=== PATIENT | female | born 1945 | race Caucasian/White ===

== ENCOUNTER → 2017-10-05 | Outpatient (CLI) | payer OTHER ==
[~2017-10-05] MED LIST: ALBU1AER9 INH; ASPEC81 PO; ATV5 PO; CALC-20 PO; FLUT0.0529 NAE; FSM70 PO; IPRASOL4 INH; MULT-190 PO; NCDT7 TD; NRV5 PO; NYSS5 PO; SNK PO; SYMIN INH; TIOTCAP INH
--- NOTE | 2017-10-06 05:59 | PAP/PSG TECHNICIAN REPORT ---
[facility] Fountain Waitress/Waiter Polysomnogram Report Study name: None Report date: 10/06/2017 Study date: 10/05/2017 Referring Physician: Dr. Lawson Name: GRETCHEN SHAIKH Interpreting Physician: Lang Olvera M.D. Date of : 1945 F[place] Waitress/Waiter: Ray Calderon RPSGT. Sex: Female Age: 71 StudyType: PSG Weight: 129 lbs 13.25 inches Height: 71 years, Height 5' 4" Neck Circum: BMI: 22.14 Medications: FLONASE 50 MCG/ACT, BONIVA 150 MG, CELEBREX 200 MG, ALBUTEROL, OXYGEN, ASPIRIN 81 MG Patient History PATIENT HAS HISTORY OF COPD, FATIGUE AND DAYTIME SLEEPINESS. SHE CURRENTLY WEARS 2L/MIN OF 02 .SHE IS HERE TODAY FOR AN EVALUATION OR AMY. ESS = 11 RM 2 Parameters Monitored NPSG: E1-M2, E2-M1, Fp1-M2, Fp2-M1, F3-M2, F4-M2, F4-M1, C3-M2, C4-M2, C4-M1, O1-M2, O2-M2, O2-M1, T3-M2, T4-M1, P3-M2, P4-M1, CHIN1, CHIN2, HR, EKG, Legs, PFLOW, SNOR, FLOW, CFLOW, Tidal Volume, THOR, ABDO, SpO2, PLTH, CPRESS, ETCO2 Wave, ETCO2, pH Sleep Architecture Sleep Stages Time at Lights Off 10:54:40 PM STAGES Time (min.) TST (%) Time at Lights On 5:33:40 AM Wake 70.5 -- Total Recording Time (TRT) 399.50 min. N1 56.5 17 Total Sleep Period (TSP) 396.5 min. N2 204.5 62 Total Sleep Time (TST) 328.5min. N3 8.5 3 Awake Time 71.0 min. REM 59.0 18 Wake after Sleep Onset 68.0 min. Sleep Efficiency (SE) 82 % Sleep Onset Latency (ROSANNA) 2.5 min. Number of Stage 1 Shifts None Awakenings 61 Stage Changes 209 Number of REM periods 6 REM 59.0 18 REM Latency 101.5 min. NREM 269.5 82 Body Position Analysis Supine Right Left Side Prone Vertical Total Sleep Time (min.) 346.2 0.0 49.7 49.66 0.0 0.0 Total Sleep Time (%) 85% 0% 15% 15 0% N/A% Total Sleep Time REM (min.) 28.5 0.0 30.5 None 0.0 0.0 Total Sleep Time NREM (min.) 250.3 0.0 19.2 None 0.0 0.0 Intermittent Wake (min.) 67.4 0.0 3.1 None 0.0 0.0 Total Sleep Period (%) 87% None None None None None Arousals Myoclonus (PLM) * Events Count Index Events Count Index Spontaneous 69 13 Events Awake (PLMW) 137 116.6 Respiratory 25 5.5 Events Asleep w/ Arousal (PLMA) 28 5.1 PLM 25 5 Events Asleep w/o Arousal (PLMS) 91 16.6 Snoring 6 1 Total Asleep 119 21.7 Total 123 22 Total 256 38 Respiratory Analysis * CA OA MA CH H RERA Total Count 0 5 0 0 50 15 55 Index 0.0 0.9 0.0 0 9.1 3 12.8 Mean Duration 0.0 29.1 0.0 0.00 21.9 16.5 21.3 Longest Duration 0.0 52.5 0.0 0.00 0.0 21.2 52.5 Respiratory Event Summary Total Supine ~Supine Right Left Prone REM NREM Apneas Count 5 5 0 N/A 0 N/A 5 0 Index 0.9 1 0 N/A 0.0 N/A 5 0 Hypopneas (4% Desat) Count 50 36 14 N/A 14 N/A 29 21 Index 9.1 7.7 17 N/A 16.9 N/A 29.5 4.7 Apneas & All Hypopneas Count 55 41 14 N/A 14 N/A 34 21 Index 10.0 9 17 N/A 17 N/A 34.6 4.7 Respiratory Events (Color Shop Helper+All Hyp+RERA) Count 55 54 16 N/A 16 N/A 34 21 Index 12.8 12 19 N/A 19.3 N/A 35.6 7.8 Respiratory Related Arousal Count 25 54 3 N/A 3 N/A 9 21 Index 5.5 6 4 N/A 4 N/A 9 5 Snoring Analysis Supine Right Left Prone REM NREM Total Snore duration 4.5 min Snores count 132 N/A 10 N/A 8 134 142 Snore mean duration 1.9 Sec Snores index 28 N/A 12 N/A 8.1 29.8 25.9 TST with snoring (%) 1.4% SpO2 Analysis Total REM NREM Awake <50% 0.0 min. 0.0 min. 0.0 min. 0.0 min. 51 - 60% 0.0 min. 0.0 min. 0.0 min. 0.0 min. 61 - 70% 0.4 min. 0.4 min. 0.0 min. 0.0 min. 71 - 80% 4.4 min. 4.3 min. 0.1 min. 0.1 min. 81 - 90% 375.5 min. 50.9 min. 261.0 min. 63.5 min. 91 - 100% 18.7 min. 3.5 min. 8.4 min. 6.9 min. Average 87 85 87 88 Minimum SpO2 66 66 80 80 Desaturation Event Index 8.6 31.5 4.7 5.1 # Desat. Events below 89% 56 31 19 6 Time(%) with Saturation below 89% 74.6 12.2 52.3 10.1 Time(min.) with Saturation below 89% 297.5 48.5 208.6 40.4 Heart Rate Analysis End Tidal CO2 Analysis Min (bpm) Max (bpm) Average (bpm) TSP (mins) % of TSP Awake 64 100 82 Above 55 mmHg 0.0 0.0 NREM 54 137 79 50-55 mmHg 0.0 0.0 REM 54 100 74 45-50 mmHg 0.0 0.0 Overall 54 137 78 40-45 mmHg 0.0 0.0 35-40 mmHg 2.6 0.8 30-35 mmHg 92.5 28.2 Average ETCO2 0.0 Supplemental O2 Values Minimum O2 level: None Value Start Time End Time Fountain Waitress/Waiter Comments Ms. Shaikh slept in the left and supine positions. PVC's noted. Leg movements noted. No bruxism noted. Snoring was noted and scored as a 2 on a scale of 1 through 5. (0=no snoring, 5=snoring loud enough to be heard through a closed door or down the angulo way) Ms. Shaikh awoke to use the restroom 0 times during the night. Mrs. Shaikh stated I did not sleep as well as I do when I am in my own bed. The final report will be interpreted and signed by a sleep physician. The completed physician report will then be placed in the patient medical record. Therapy (cm H2O) 0 TIB (min.) 399.0 TST (min.) 328.5 Sleep Onset (min.) 2.5 REM Onset From Sleep (min.) 101.5 Sleep Efficiency % 82 Wakefulness (%) 18 Wakefulness (min.) 71.0 NREM 1 (%) 17 NREM 1 (min.) 56.5 NREM 2 (%) 62 NREM 2 (min.) 204.5 NREM 3 (%) 3 NREM 3 (min.) 8.5 REM (%) 18 REM (min.) 59.0 # Arousals 123 Arousal Index 22 # Snore 142 Snore Index 25.9 AHI 10.0 AHI Supine 9 AHI Non-Supine 17 NREM AHI 4.7 REM AHI 34.6 RDI 12.8 # Obstructive Apnea 5 # Central Apnea 0 # Mixed Apnea 0 # Hypopneas 50 RERAs 15 Total Respiratory Events 72 Time Below SpO2 89% (min.) 257.1 Mean NREM SpO2 (%) 87 Mean REM SpO2 (%) 85 Mean Sleep SpO2 (%) 87 Min NREM SpO2 (%) 80 Min REM SpO2 (%) 66 Position Supine (min.) 346.2 Position Non-supine (min.) 49.7 LM Index Sleep 21.7 LM Index NREM 22.5 LM Index REM 18.3 Mean Heart Rate (bpm) 78 Min Heart Rate (bpm) 54
--- NOTE | 2017-10-06 15:33 | POLYSOMNOGRAPH REPORT ---
CLINICAL DATA: A 71-year-old female with BMI of 22.[address] Lawson with a history of COPD and possible sleep apnea. She uses oxygen 2 liters per minute. She does have fatigue and daytime sleepiness. Her [place] sleepiness score is 11/24. SLEEP ARCHITECTURE: Total sleep period was 396.5 minutes. Total sleep time was 328.5 minutes divided between 269.5 minutes of non-REM sleep and 59 minutes of REM sleep. Sleep onset latency was 2.5 minutes. REM latency was 101.5 minutes. Sleep efficiency was 82%. Wake after sleep onset was 68 minutes. Sleep consisted of stage N1 17%, stage N2 62%, stage N3 3%, and REM 18%. AROUSAL DATA: One hundred and twenty three arousals were recorded for an index of 22 per hour. Sixty nine were spontaneous. Twenty five were due to respiratory events. PLM DATA: 119 limb movements during sleep were noted for an index of 21.7 per hour with arousal index of 5.1 per hour. RESPIRATORY DATA: Mild sleep apnea was documented. The AHI was 10. There were 5 obstructive apneic episodes, the longest duration of which was 52.5 seconds. There were 50 hypopneic episodes with a mean duration of 22 seconds. OXIMETRY DATA: Nocturnal hypoxemia was seen. Oxygen maximino was 66% during REM. The mean saturation was 87%. ECHOCARDIOGRAM: Heart rates ranged from 54-137 beats per minute. PVCs were noted. HYDROELECTRIC PLANT OPERATOR'S COMMENTS: The patient slept in the left and supine positions. Snoring was mild, rated 2 on a scale of 1-5. The patient had frequent arousals and awakenings through the night. She did not reach an adequate AHI to justify a split night study early enough in the night. IMPRESSION: Mild sleep apnea/hypopnea with an apnea/hypopnea index of 10 with nocturnal hypoxemia. RECOMMENDATIONS: The patient could be considered for a repeat sleep study with CPAP and/or oxygen or continuation of her oxygen. Clinical correlation is needed. DARWIN
== END | disposition home or self-care (01) ==
LOC: C.NEUR 21:00
PROVIDERS: ATTEND Internal Medicine
DX: G47.33 Obstructive sleep apnea (adult) (pediatric) (principal)

== ENCOUNTER 2017-10-27 12:18 | Emergency (ER) | payer OTHER ==
[~2017-10-27] VITALS: Ht 160 cm; Wt 57.8 kg
[2017-10-27 12:21] VITALS: TEMP 36.5; Ht 160 cm; Wt 57.8 kg
[2017-10-27] MEDS ORDERED: ALBUT/IPRATROP 3MG/0.5MG NEB 3 ML VIAL INH STA (12:36)
[2017-10-27 12:52] LABS: BASO % 0.3 %; BASO ABS # 0.03 K/uL (0-0.2); EOS % 0.5 %; EOS ABS # 0.04 K/uL (0-0.5); HEMOGLOBIN 14.6 g/dL (12.0-16.0); IG# 0.03 K/uL (0.00-0.02); LYMPH % 10.3 %; LYMPH ABS # 0.89 K/uL (1.2-3.4); MEAN CELL VOLUME 88.5 fL (80-100); MEAN PLATELET VOLUME 9.9 fL (7.4-10.4); MONO % 4.4 %; MONO ABS # 0.38 K/uL (0.11-0.59); NEUT % 84.2 %; PLATELET COUNT 329 K/uL (130-400); RED CELL DISTRIBUTION WIDTH CV 14.3 % (11.5-14.5); RED CELL DISTRIBUTION WIDTH SD 46.2 fL (36.4-46.3); WHITE BLOOD COUNT 8.67 K/uL (4.8-10.8)
[2017-10-27 12:54] VITALS: O2SAT 96
--- NOTE | 2017-10-27 13:03 | DIAGNOSTIC IMAGING REPORT ---
SINGLE VIEW CHEST CLINICAL HISTORY: Dyspnea. FINDINGS: An AP, portable, upright chest radiograph is compared to study dated 01/13/2015 and correlated with chest CT dated 01/08/2015. The examination is degraded by portable technique and patient rotation. The cardiomediastinal silhouette is unremarkable. There is atherosclerotic calcification of the thoracic aorta. Enlargement of the central pulmonary arteries suggests pulmonary artery hypertension. Emphysema and chronic interstitial thickening are similar to previous. Biapical scarring is observed. No airspace consolidation or large pleural effusion is identified. Bibasilar atelectasis is noted. No pneumothorax is seen. The skeletal structures are osteopenic. The bony thorax is grossly intact. IMPRESSION: Advanced emphysema with no acute cardiopulmonary abnormality. Electronically signed by: Vincent Klein M.D. 10/27/2017 1:02 PM Dictated Date/Time: 10/27/2017 1:01 PM
[2017-10-27 13:04] LABS: PTT PATIENT 25.8 SECONDS (21.0-31.0)
[2017-10-27 13:15] LABS: ALBUMIN 4.1 gm/dl (3.4-5.0); CALCIUM 9.2 mg/dl (8.5-10.1); CREATININE 0.66 mg/dl (0.60-1.20); POTASSIUM 3.9 mmol/L (3.5-5.1)
[2017-10-27 13:18] LABS: TOTAL PROTEIN 7.2 gm/dl (6.4-8.2)
[2017-10-27 13:40] LABS: INFLUENZA B ANTIGEN Neg for Influ B (NEG)
[2017-10-27] MEDS ORDERED: ASPI-435 PO (13:54)
[2017-10-27] MEDS ORDERED: FLUT50SP45 NAE (13:56)
[2017-10-27] MEDS ORDERED: SPRIN/30 INH (13:56)
[2017-10-27] MEDS ORDERED: VNTHFA/IN INH (13:56)
[2017-10-27] MEDS ORDERED: MISCCAP80 PO (14:00)
[2017-10-27] MEDS ORDERED: PRED10TA PO (14:00)
[2017-10-27] MEDS ORDERED: IBAN150T7 PO (14:00)
[2017-10-27] MEDS ORDERED: DOXY100C2 PO (14:00)
[2017-10-27] MEDS ORDERED: UMEC1AER INH (14:00)
[2017-10-27] MEDS ORDERED: CELE1CAP30 PO (14:00)
[2017-10-27] MEDS ORDERED: VITACAP26 PO (14:01)
[2017-10-27 14:10] VITALS: O2SAT 96
--- NOTE | 2017-10-27 14:45 | EMERGENCY ROOM VISIT NOTE ---
History Report prepared by Manolo: Cayetano Hill Under the Supervision of: Dr. Salty Garcia D.O. First contact with patient: 13:05 Chief Complaint: SHORTNESS OF BREATH Stated Complaint: UNABLE TO BREATHE Nursing Triage Summary: feeling short of breath since monday. taking steroids and z pack without relief. History of Present Illness The patient is a 71 year old female who presents to the Emergency Room with complaints of worsening respiratory problems that began earlier this week. She has a past medical history of COPD and is on 2L of oxygen at night. Four days ago, the patient went to her PCP because she was experiencing a headache, sinus congestion, rhinorrhea, and a worsening cough. She was started on Azithromycin, Doxycycline, and Prednisone which she has been taking over this time. However, she had become short of breath which has worsened recently. She used a Nebulizer treatment this morning and had to use her Proventil inhaler yesterday which she has never had to do. She states her oxygen saturation decreased to 88 % last night. She notes that she had to use her oxygen during the day today secondary to her symptoms. She denies any fevers. Source of History: patient Onset: four days ago Position: other (Respiratory System) Symptom Intensity: moderate Quality: other (Shortness of breath) Timing: worsening Associated Symptoms: + headache, + cough, No fevers Note: She is experiencing sinus congestion and rhinorrhea. Review of Systems See HPI for pertinent positives & negatives. A total of 10 systems reviewed and were otherwise negative. Past Medical & Surgical Medical Problems: (1) COPD (chronic obstructive pulmonary disease) Family History Cancer Heart disease Hypertension Social History Smoking Status: Former Smoker Marital Status: single Housing Status: lives with family Occupation Status: retired Current/Historical Medications Scheduled Aspirin (Aspirin 81), 81 MG PO 2XWK Calcium Carbonate-Vitamin D (Calcium 600 + D), 1 TAB PO DAILY Doxycycline Hyclate (Vibramycin), 100 MG PO BID Fluticasone Propionate (Nasal) (Allergy Nasal [place] [address] Ho), 2 SPRAYS GIOVANNI DAILY Ibandronate Sodium (Ibandronate Sodium), 150 MG PO MONTHLY Ocuvite Preservision (Ocuvite Preservision), 1 TAB PO DAILY Prednisone (Prednisone), 1 DOSE PO UD Probiotic Product (Probiotic), 1 CAP PO DAILY Tiotropium [place] (Spiriva Handihaler), 1 CAP INH DAILY Umeclidinium-Vilanterol (Anoro Ellipta 62.5-25 Mcg/INH), 1 PUFF INH DAILY Vitamins C & E (Vitamin C), 1 CAP PO DAILY Scheduled PRN Albuterol Hfa (Ventolin Hfa), 2-4 PUFFS INH Q6H PRN for SOB/Wheezing Celecoxib (Celecoxib), 200 MG PO BID PRN for . Ipratropium-Albuterol (Duoneb), 1 TREATMENT INH Q4H PRN for Wheezing Lorazepam (Lorazepam), 0.5 MG PO TID PRN for Anxiety Allergies Coded Allergies: Naproxen (Verified Allergy, Intermediate, GENERALIZED RASH, 10/27/17) Physical Exam Vital Signs Date Time Temp Pulse Resp B/P (MAP) Pulse Ox O2 Delivery O2 Flow Rate FiO2 10/27/17 12:54 96 Room Air 10/27/17 12:53 96 Room Air 10/27/17 12:52 97 10/27/17 12:21 36.5 100 18 130/64 95 Room Air Physical Exam CONSTITUTIONAL/VITAL SIGNS: Reviewed / noted above. GENERAL: Non-toxic in appearance. INTEGUMENTARY: Warm, dry, and Peck. HEAD: Normocephalic. EYES: without scleral icterus or trauma. ENT/OROPHARYNX: clear and moist. LYMPHADENOPATHY/NECK: Is supple without lymphadenopathy or meningismus. RESPIRATORY: Scattered wheezing on the left . Mild increased work of breathing. CARDIOVASCULAR: Regular rate and rhythm. GI/ABDOMEN: Soft and nontender. No organomegaly or pulsatile mass. No rebound or guarding. Normal bowel sounds. EXTREMITIES: Warm and well perfused. BACK: No CVA tenderness. NEUROLOGICAL: Intact without focal deficits. PSYCHIATRIC: normal affect. MUSCULOSKELETAL: Normally developed with good muscle tone. Medical Decision & Procedures ER Provider Diagnostic Interpretation: Radiology results as stated below per my review and radiologist interpretation: SINGLE VIEW CHEST CLINICAL HISTORY: Dyspnea. FINDINGS: An AP, portable, upright chest radiograph is compared to study dated 01/13/2015 and correlated with chest CT dated 01/08/2015. The examination is degraded by portable technique and patient rotation. The cardiomediastinal silhouette is unremarkable. There is atherosclerotic calcification of the thoracic aorta. Enlargement of the central pulmonary arteries suggests pulmonary artery hypertension. Emphysema and chronic interstitial thickening are similar to previous. Biapical scarring is observed. No airspace consolidation or large pleural effusion is identified. Bibasilar atelectasis is noted. No pneumothorax is seen. The skeletal structures are osteopenic. The bony thorax is grossly intact. IMPRESSION: Advanced emphysema with no acute cardiopulmonary abnormality. Electronically signed by: Vincent Klein M.D. 10/27/2017 1:02 PM Dictated Date/Time: 10/27/2017 1:01 PM Laboratory Results 10/27/17 12:35 Red Blood Count 4.86, Mean Corpuscular Volume 88.5, Mean Corpuscular Hemoglobin 30.0, Mean Corpuscular Hemoglobin Concent 34.0, Mean Platelet Volume 9.9, Neutrophils (%) (Auto) 84.2, Lymphocytes (%) (Auto) 10.3, Monocytes (%) (Auto) 4.4, Eosinophils (%) (Auto) 0.5, Basophils (%) (Auto) 0.3, Neutrophils # (Auto) 7.30, Lymphocytes # (Auto) 0.89, Monocytes # (Auto) 0.38, Eosinophils # (Auto) 0.04, Basophils # (Auto) 0.03 10/27/17 12:35 Test 10/27/17 12:35 10/27/17 13:05 White Blood Count 8.67 K/uL (4.8-10.8) Red Blood Count 4.86 M/uL (4.2-5.4) Hemoglobin 14.6 g/dL (12.0-16.0) Hematocrit 43.0 % (37-47) Mean Corpuscular Volume 88.5 fL (80-100) Mean Corpuscular Hemoglobin 30.0 pg (25-34) Mean Corpuscular Hemoglobin Concent 34.0 g/dl (32-36) Platelet Count 329 K/uL (130-400) Mean Platelet Volume 9.9 fL (7.4-10.4) Neutrophils (%) (Auto) 84.2 % Lymphocytes (%) (Auto) 10.3 % Monocytes (%) (Auto) 4.4 % Eosinophils (%) (Auto) 0.5 % Basophils (%) (Auto) 0.3 % Neutrophils # (Auto) 7.30 K/uL (1.4-6.5) Lymphocytes # (Auto) 0.89 K/uL (1.2-3.4) Monocytes # (Auto) 0.38 K/uL (0.11-0.59) Eosinophils # (Auto) 0.04 K/uL (0-0.5) Basophils # (Auto) 0.03 K/uL (0-0.2) RDW Standard Deviation 46.2 fL (36.4-46.3) RDW Coefficient of Variation 14.3 % (11.5-14.5) Immature Granulocyte % (Auto) 0.3 % Immature Granulocyte # (Auto) 0.03 K/uL (0.00-0.02) Prothrombin Time 10.7 SECONDS (9.0-12.0) Prothromb Time International Ratio 1.0 (0.9-1.1) Activated Partial Thromboplast Time 25.8 SECONDS (21.0-31.0) Partial Thromboplastin Ratio 1.0 Anion Gap 10.0 mmol/L (3-11) Est Creatinine Clear Calc Drug Dose 62.8 ml/min Estimated GFR () 101.6 Estimated GFR (Non- 87.6 BUN/Creatinine Ratio 24.0 (10-20) Calcium Level 9.2 mg/dl (8.5-10.1) Total Bilirubin 0.8 mg/dl (0.2-1) Aspartate Amino Transf (AST/SGOT) 28 U/L (15-37) Alanine Aminotransferase (ALT/SGPT) 29 U/L (12-78) Alkaline Phosphatase 57 U/L (45-117) Total Protein 7.2 gm/dl (6.4-8.2) Albumin 4.1 gm/dl (3.4-5.0) Globulin 3.1 gm/dl (2.5-4.0) Albumin/Globulin Ratio 1.3 (0.9-2) Influenza Type A Antigen Neg for Influ A (NEG) Influenza Type B Antigen Neg for Influ B (NEG) Laboratory results as stated above per my review. Medications Administered Medications (Trade) Dose Ordered Sig/Meli Route Start Time Stop Time Status Last Admin Dose Admin Albuterol/ Ipratropium (Duoneb) 3 ml NOW STAT INH 10/27/17 12:36 10/27/17 12:41 DC 10/27/17 12:47 3 ML ECG Indication: SOB/dyspnea Rate (beats per minute): 95 Rhythm: normal sinus Findings: no acute ischemic change, no ectopy Change: ECG interpreted by me ED Course 1305: Previous medical records were reviewed. The patient was evaluated in room B6. A complete history and physical examination was performed. 1450: On reevaluation, the patient is resting. I discussed the results and findings with the patient. She verbalized agreement of the treatment plan. She was discharged home. Medical Decision Differentials considered include acute myocardial infarction, acute coronary syndrome, myocarditis, pericarditis, pericardial effusions /tamponade, esophageal perforation, pulmonary embolism, pneumonia, pneumothorax, cardiomyopathy, congestive heart, anemia, and COPD/asthma exacerbation. This is a 71-year-old female who presents to the ED with a chief complaint of shortness of breath. The patient saw her PCP on Monday and was started on a Z- Shaquille, doxycycline and prednisone. She has nebulizers at home. She states that she normally uses 2 L of oxygen at night. Her vital signs here are normal. She just finished a DuoNeb treatment. Her lungs are mostly clear with the exception of a scattered wheeze in the left. She has minimal increased work of breathing. She does have a chest x-ray that shows some chronic significant emphysema with otherwise no acute disease. CBC is normal, complete metabolic panel is normal and a glucose is 128. Flu swab was negative. The patient was told the results of the test. She is felt to be stable for discharge and outpatient follow-up. Medication Reconcilliation Current Medication List: was personally reviewed by me Blood Pressure Screening Patient's blood pressure: Normal blood pressure Blood pressure disposition: Did not require urgent referral Impression Primary Impression: COPD exacerbation Scribe Attestation The scribe's documentation has been prepared under my direction and personally reviewed by me in its entirety. I confirm that the note above accurately reflects all work, treatment, procedures, and medical decision making performed by me. Departure Information Dispostion Home / Self-Care Referrals Melody Johnson D.O. (PCP) Forms HOME CARE DOCUMENTATION FORM, IMPORTANT VISIT INFORMATION Patient Instructions My [facility] Additional Instructions Follow-up with your doctor for further care and evaluation in 1-2 days. Return to the emergency department for worsening or new symptoms or any concerns. You have been examined and treated today on an emergency basis only. This is not a substitute for, or an effort to provide, complete comprehensive medical care. It is impossible to recognize and treat all injuries or illnesses in a single emergency department visit. It is therefore important that you follow up closely with your doctor. Call as soon as possible for an appointment. Continue the current medications you have been prescribed by your doctor.
[2017-10-27 15:00] VITALS: BP 139/84; PULSE 112
== END 2017-10-27 15:05 | disposition home or self-care (01) ==
LOC: C.EDB 12:19
DX: J44.1 Chronic obstructive pulmonary disease with (acute) exacerbation (principal); Z99.81 Dependence on supplemental oxygen; Z87.891 Personal history of nicotine dependence; Z80.9 Family history of malignant neoplasm, unspecified; Z82.49 Family history of ischemic heart disease and other diseases of the circulatory system; Z79.82 Long term (current) use of aspirin; Z79.899 Other long term (current) drug therapy

== ENCOUNTER 2019-08-06 06:30 | Inpatient (IN) ==
--- NOTE | 2019-07-10 10:42 | PAT Medication Instructions ---
Medication Instructions Date of Service July 10, 2019 Home Medications albuterol sulfate 2 puff INHALATION QID PRN ascorbic acid (vitamin C) [Vitamin C] 250 mg PO QAM aspirin [Aspirin Low Dose] 81 mg PO 2XWK calcium carbonate-vitamin D3 [Calcium 600 + D(3)] 1 cap PO QAM celecoxib [Celebrex] 100 mg PO QAM cyanocobalamin (vitamin B-12) [Vitamin B-12] 100 mcg PO QAM doxycycline hyclate 100 mg PO BID PRN fluticasone propionate 2 spray INTRANASAL QAM ipratropium-albuterol 3 ml INHALATION QID montelukast 10 mg PO PM prednisone 10 mg PO DAILY PRN tiotropium bromide 1 cap INHALATION QAM vit A,C and K-[id number] [Ocuvite with Lutein] 1 tab PO QAM Continue as directed doxycycline hyclate 100 mg PO BID PRN (if needed) prednisone 10 mg PO DAILY PRN aspirin [Aspirin Low Dose] 81 mg PO 2XWK ASK your surgeon for instructions celecoxib [Celebrex] 100 mg PO QAM STOP taking 2 weeks before surgery (or as soon as possible if surgery is within 2 weeks) [Ocuvite with Lutein] 1 tab PO QAM DO NOT take the morning of surgery ascorbic acid (vitamin C) [Vitamin C] 250 mg PO [id number] calcium carbonate-vitamin D3 [Calcium 600 + D(3)] 1 cap PO QAM cyanocobalamin (vitamin B-12) [Vitamin B-12] 100 mcg PO QAM Take morning of surgery With a small sip of water, OTHERWISE NOTHING TO EAT OR DRINK AFTER MIDNIGHT: albuterol sulfate 2 puff INHALATION QID PRN (use if needed; please bring with you to hospital day of surgery if possible) fluticasone propionate 2 spray INTRANASAL QAM ipratropium-albuterol 3 ml INHALATION QID tiotropium bromide 1 cap INHALATION QAM Take evening before surgery albuterol sulfate 2 puff INHALATION QID PRN (if needed) ipratropium-albuterol 3 ml INHALATION QID montelukast 10 mg PO PM Other Notes If you have any questions please call us at [phone] or [phone] or [phone] or [phone]
--- NOTE | 2019-07-11 10:30 | Anesthesiology Consultation ---
Date of Service July 11, 2019 Assessment & Plan (1) Encounter for pre-operative examination: - Awaiting review preop labs. - Awaiting optimization/perioperative recommendations from pulmonary (Kajal Waters). - Cardiology: 07/08/19: recent stress test/echo reviewed. "She is considered moderate risk for perioperative cardiac complications given her history and comorbidities. Her underlying pulmonary disease makers her high risk for pulmonary complications. Would defer to pulmonary for recommendations. No further cardiac testing is warranted at this time." - Pulmonary: 06/26/19: Improved symptoms with addition of air purifier and montelukast. Aware of upcoming hip replacement. Chart Review Chart Review: Patient seen in Pre Admission Testing Teaching & Discussion Pre-Anesthesia Teaching/Discussion Notes: Instructed NPO after midnight before surgery,except medications with 15 cc of water. Medication instructions provided according to the PAT guidelines. History Surgery Operation Date: 08/06/19 12:30 Proposed Procedures p Right Total Hip Arthroplasty - Rigoberto Kan MD Height/Weight Height: 5 ft 3 in Weight: 60.2 kg Allergies Allergy/AdvReac Type Severity Reaction Status Date / Time naproxen Allergy Intermediate generalized Verified 07/11/19 09:12 rash NSAIDS (Non-Steroidal AdvReac Unknown unknown Verified 07/11/19 09:12 Anti-Inflamma reaction (? per MD order) Medications Home Medications Medication Instructions Recorded Confirmed Last Taken ascorbic acid (vitamin C) [Vitamin 250 mg PO QAM 07/04/19 07/04/19 Unknown C] aspirin [Aspirin Low Dose] 81 mg PO 2XWK 07/04/19 07/04/19 Unknown calcium carbonate-vitamin D3 1 cap PO QAM 07/04/19 07/04/19 Unknown [Calcium 600 + D(3)] celecoxib [Celebrex] 100 mg PO QAM 07/04/19 07/04/19 Unknown cyanocobalamin (vitamin B-12) 100 mcg PO QAM 07/04/19 07/04/19 Unknown [Vitamin B-12] doxycycline hyclate 100 mg PO BID PRN 07/04/19 07/04/19 Unknown fluticasone propionate 2 spray INTRANASAL QAM 07/04/19 07/04/19 Unknown ipratropium-albuterol 3 ml INHALATION QID 07/04/19 07/04/19 Unknown montelukast 10 mg PO PM 07/04/19 07/04/19 Unknown prednisone 10 mg PO DAILY PRN 07/04/19 07/04/19 Unknown tiotropium bromide 1 cap INHALATION QAM 07/04/19 07/04/19 Unknown vit A,C and K-woocgu-nzqovmuy 1 tab PO QAM 07/04/19 07/04/19 Unknown [Ocuvite with Lutein] Past Medical History Medical History Asthma Chronic obstructive pulmonary disease 2L HS/PRN daytime (daytime O2 rare/monthly) Osteoarthritis Sleep apnea "mild"- 2LHS Exercise / Class Metabolic Activity III < 4 Walking/Shop/Light housework Past Family History Family History Daughter Family hx of colon cancer Father FHx: lung cancer Sister HX: breast cancer Mother Family hx-leukemia Past Surgical History Surgical History History of tonsillectomy Hx of hernia repair inguinal Past Anesthesia History No Hx of Anesthesia Complications and No Family Hx of Anesthesia Complications History of PONV No Hx of PONV and No Hx of Motion Sickness Social History Smoking Status: Former smoker Do You Dip or Chew Tobacco: No Smoking End Date: Quit 11/2014; hx 1/2 ppd x 50 years Hx Alcohol Use: No Hx Substance Use: No Review of Systems Occasional wheezing. Rare coughing. Patient denies chest pain, shortness of breath, reflux, palpitations. Physical Exam Vital Signs VITALS BP 123/69 P 74 TEMP 98.5 SP02 93%RA RESP 16 PHYSICAL Full neck and c-spine range of motion. Full TMJ range of motion. TMD 3 finger breaths Mallampati Score 1 Dentition: full dentures upper/lower Lungs: clear throughout to auscultation Cardiac: regular rate and rhythm, no murmurs noted Spine: normal Carotid arteries: negative bruit Extremities: no edema Testing Electrocardiogram Date: 02/05/19 Findings: + NSR @ (83) Echocardiogram Date: 04/26/19 EF 60%. No RWMA. Grade I DD. Mild MR. Stress Test Date: 06/05/19 Type: DSE Pharmacologic stress ECHO negative for inducible ischemia. Mild equivocal EKG changes were observed without meeting criteria for definite ischemia. No angina. LVEF 55-59%. 122% MPHR. Other Testing Chest CT: 12/06/18: Significant interval resolution of LLL spiculated pleural/parenchymal nodular focus (likely infectious etiology). Two pulmonary nodules are present, measuring 3mm or less in size.
[2019-07-11 11:13] LABS: Basophils # (auto) 0.02 K/uL (0-0.2); Basophils % (auto) 0.2 %; Eosinophils % (auto) 2.4 %; Hematocrit (blood only) 41.1 % (37-47); Hemoglobin 13.4 g/dL (12.0-16.0); Immature Granulocytes # (auto) 0.04 K/uL (0.00-0.02); Immature Granulocytes % (auto) 0.5 %; Lymphocytes # (auto) 1.31 K/uL (1.2-3.4); Lymphocytes % (auto) 15.9 %; Mean Corpuscular Hemoglobin 29.3 pg (25-34); Mean Corpuscular Hgb Conc 32.6 g/dL (32-36); Mean Corpuscular Volume 89.9 fL (80-100); Monocytes # (auto) 0.82 K/uL (0.11-0.59); Neutrophils # (auto) 5.85 K/uL (1.4-6.5); Platelet Count 261 K/uL (130-400); RDW Coefficient of Variation 14.1 % (11.5-14.5); RDW Standard Deviation 46.1 fL (36.4-46.3); Red Blood Count 4.57 M/uL (4.2-5.4); White Blood Count 8.24 K/uL (4.8-10.8)
[2019-07-11 11:26] LABS: Partial Thromboplastin Time 25.9 Seconds (21.0-31.0); Prothrombin Time 10.2 Seconds (9.0-12.0)
[2019-07-11 12:49] LABS: BUN Creatinine Ratio 36.7 (10-20); Calcium 9.4 mg/dl (8.5-10.1); Creatinine Clr Calc Pharmacy 60.9 ml/min; Est GFR (African American) 100.2; Est GFR (Non-African American) 86.4
--- NOTE | 2019-08-02 18:06 | History and Physical Report ---
DATE OF ADMISSION: 08/06/2019 CHIEF COMPLAINT: Persistent right hip pain. HISTORY OF PRESENT ILLNESS: The patient is a 73-year-old female who presents for surgical treatment of her right hip. She has a several year history of increasing right hip pain and discomfort that is just becoming incapacitating with time. She initially saw Dr. Guaman and then was referred to us. She describes groin pain, thigh pain radiating down to her knee. It hurts her all the time. She has difficulty putting her shoes and socks on. The more she walks, the more it hurts. She limps from the beginning of the day to end of the day and it just gets worse as the day goes on. She has taken Celebrex which does not help at all. She now would like to have her hip replaced. PAST MEDICAL HISTORY: Significant for: 1. Oxygen dependent COPD, uses oxygen at nighttime. 2. Arthritis. PAST SURGICAL HISTORY: Include: 1. Herniorrhaphy. 2. T and A. ALLERGIES: ALEVE. CURRENT MEDICINES: Include: 1. Spiriva. 2. ProAir inhaler. 3. Celebrex. 4. Vitamin B12. 5. Vitamin C. 6. Calcium with vitamin D. 7. Ocuvite. 8. Montelukast. 9. O2 at nighttime. SOCIAL HISTORY: This is a 73-year-old female. Lives by herself. Rare alcohol intake. Three children. Quit smoking 4-5 years ago. FAMILY HISTORY: Significant for heart disease, diabetes, lung cancer. REVIEW OF SYSTEMS: Significant for oxygen dependent COPD. She does use oxygen at nighttime. Denies any current chest pain or shortness of breath. No history of DVT or PE. No known bleeding problems. PHYSICAL EXAMINATION: GENERAL: Shows a pleasant, healthy appearing elderly female. HEENT: Benign. NECK: Supple, no lymphadenopathy. LUNGS: Clear to auscultation. HEART: Regular rate and rhythm. ABDOMEN: Soft, nontender, nondistended. EXTREMITIES: Grossly neurovascularly intact except as follows: Examination of the right hip reveals the patient walks with an antalgic gait. Leg lengths clinically appear pretty equal. She has a very stiff hip with internal rotation to -10 degrees. She can externally rotate to 20. It is painful to move her hip. Negative straight leg raise. She is neurologically intact. X-RAYS: X-rays of the right hip were reviewed. Shows advanced right hip DJD. She has a complete loss of joint space. She has cystic changes of the femoral head and acetabulum. She has got collapse of the femoral head. She has less severe disease on the left side. ASSESSMENT: A 73-year-old female with advanced right hip degenerative joint disease. Her pain has become incapacitating. She would like to have her right hip fixed. PLAN: We discussed treatment options. We are going to take her to the operating room and do a right total hip replacement. The risks and benefits of this procedure were explained to the patient and include but not limited to DVT, PE, , infection, neurological injury, vascular injury, bleeding problem, pain, limited range of motion, stiffness, failure to relieve symptoms, incomplete relief of symptoms, need for further surgery in future, fracture, leg length inequality, nerve palsy, etc. The patient understands and desires to proceed. Informed consent was obtained. We will do all we can to maximize and stabilize her hip, so she does have any problems with instability. She apparently has been cleared by Cardiology as well as Pulmonology and her medical doctor, all [facility] physicians. We will likely have the [facility] hospitalist follow in the hospital.
[~2019-08-06 06:30] MED LIST changes: +ACETAMINOPHEN 500 MG TAB PO SCH; -ALBU1AER9 INH; -ASPEC81 PO; -ATV5 PO; +BUPIVACAINE 0.5 % 5 MG/1 ML PF 10ML VIAL ONE; -CALC-20 PO; +CEFAZOLIN 2000MG 2,000 MG/15 ML SYR IV SCH; +FAMOTIDINE 20 MG TAB PO SCH; -FLUT0.0529 NAE; -FSM70 PO; +GABAPENTIN 300 MG CAP PO SCH; -IPRASOL4 INH; +LR 500ML BOLUS IV SCH; +LR 60ML/HR IV SCH; +METOCLOPRAMIDE HCL 10 MG TABLET PO SCH; -MULT-190 PO; -NCDT7 TD; -NRV5 PO; -NYSS5 PO; -SNK PO; -SYMIN INH; -TIOTCAP INH; +TRANEXAMIC ACID 1,000 MG **IV Pre-op IV SCH
--- NOTE | 2019-08-06 06:55 | History & Physical Bridge Note ---
Date of Service August 06, 2019 History & Physical Bridge Note I have examined the patient, reviewed the History & Physical and in the interval since the performance of the History & Physical I have noted the following changes of clinical significance: no changes noted
[2019-08-06] MEDS ORDERED: MoRPHine SULFATE PF 1 MG/ML 10 ML AMP/VIAL ONE (07:47)
[2019-08-06] MEDS ORDERED: fentaNYL citrate 100 MCG/2 ML VIAL ONE (07:49)
[2019-08-06] MEDS ORDERED: MIDAZOLAM HCL 1 MG/ML 2ML VIAL ONE (07:50)
[2019-08-06] MEDS ORDERED: ONDANSETRON INJ 2 MG/ML 2 ML VIAL ONE (07:53)
[2019-08-06] MEDS ORDERED: LIDOCAINE HCL 2% 2 ML VIAL/AMP(20MG/ML) INFIL ONE (07:53)
[2019-08-06] MEDS ORDERED: PROPOFOL IV EMULSION 10 MG/ML 20 ML VIAL IV ONE (07:53)
[2019-08-06] MEDS ORDERED: EPINEPHrine INJ 1 MG/ML AMP ONE (08:38)
[2019-08-06] MEDS ORDERED: BUPIVACAINE 0.5 % 5 MG/1 ML MPF 30ML VIAL ONE (08:38)
[2019-08-06] MEDS ORDERED: BACITRACIN INJ 50,000 UNIT VIAL ONE (08:38)
[2019-08-06] MEDS ORDERED: LACTATED RINGER'S 500 ML IV PRN (08:49)
[2019-08-06] MEDS ORDERED: ONDANSETRON INJ 2 MG/ML 2 ML VIAL IV PRN ×2 (08:49→11:53)
[2019-08-06] MEDS ORDERED: MoRPHine SULFATE PF 1 MG/ML 10 ML AMP/VIAL INT SPINAL ONE (08:49)
[2019-08-06] MEDS ORDERED: DiphenhydrAMINE HCL 50 MG/ML VIAL IV PRN (08:49)
[2019-08-06] MEDS ORDERED: PROMETHAZINE HCL 6.25 MG in SODIUM CHLORIDE 0.9% 50 ML IV PRN (08:49)
[2019-08-06] MEDS ORDERED: NALOXONE HCL 0.08 MG in SYRINGE 1.8 ML IV PRN (08:49)
[2019-08-06] MEDS ORDERED: NALOXONE HCL 0.4 MG/1 ML VIAL/CARP IV PRN ×2 (08:49→11:53)
[2019-08-06] MEDS ORDERED: MEPERIDINE HCL 25 MG/ML CARP IV PRN (08:49)
[2019-08-06] MEDS ORDERED: NALOXONE HCL 1 MG in SODIUM CHLORIDE 0.9% 1000ML 1,000 ML IV PRN (08:49)
[2019-08-06] MEDS ORDERED: NALBUPHINE HCL INJ 10 MG/ML AMP IV PRN (08:49)
[2019-08-06] MEDS ORDERED: ePHEDrine sulfate 50 MG/ML AMP IV PRN (08:49)
[2019-08-06] MEDS ORDERED: NO NARCOTICS OR SEDATIVES SCH (09:00)
[2019-08-06] MEDS ORDERED: SODIUM CHLORIDE 0.9% 1000ML 1,000 ML IV SCH (09:00)
[2019-08-06] MEDS ORDERED: DC INTRASPINAL MORPHINE SCH (09:00)
[2019-08-06] MEDS ORDERED: ePHEDrine sulfate 50 MG/ML SYR ONE (09:31)
--- NOTE | 2019-08-06 10:32 | Post Operative Brief Note ---
PG Immediate Post Op with CF Date of Surgery August 06, 2019 Pre & Post Diagnosis Operation Date: 08/06/19 08:50 Pre-Op Diagnosis: RIGHT HIP DEGENERATIVE JOINT DISEASE Post-Op Diagnosis: RIGHT HIP DEGENERATIVE JOINT DISEASE I identified the patient and participated in the time-out.: Yes Procedure Operation Date: 08/06/19 08:50 Actual Procedures p Right Total Hip Arthroplasty, Uncemented(Right) - Rigoberto Kan MD Surgeon Rigoberto Kan MD Central Supply Technician Supervisor Priyanka, PAC Estimated Blood Loss 200 Findings Consistent with Post-Op Diagnosis Fluids 800 cc Specimens Specimen Description: Permanent Specimen: A: Right Femoral Head Drains Zambrano Catheter Anesthesia Type Spinal MAC Complications none Disposition Accompanied Patient To Recovery: Yes Disposition: Recovery Room
--- NOTE | 2019-08-06 10:56 | Anesthesiology Progress Note ---
Date of Service August 06, 2019 Anesthesia Post Procedure Vital Signs Vital Signs: Temp Pulse Pulse Resp BP BP Pulse Ox 08/06/19 10:50 68 16 121/50 L 99 08/06/19 10:40 70 12 123/50 L 99 08/06/19 10:33 36.2 C L 69 21 114/47 L 98 08/06/19 06:53 36.5 C 76 18 157/66 H 95 Transfer of Care Handoff Completed per policy Notes Mental Status: alert / awake / arousable Patient Amnestic to Procedure: Yes Nausea / Vomiting: adequately controlled Pain: adequately controlled Airway Patency, RR, SpO2: stable & adequate BP & HR: stable & adequate Hydration State: stable & adequate Neuraxial Anesthesia: was administered and sensory block is resolving Anesthetic Complications: no major complications apparent
--- NOTE | 2019-08-06 10:57 | XRay Report ---
XR hip 1V RT w pelvis CLINICAL HISTORY: 73 years-old Female presenting with IN PACU - A/P PELVIS and LATERAL HIP . TECHNIQUE: Single frontal view of the pelvis and cross-table lateral view of the right hip were obtai andrés. COMPARISON: 06/17/2019. FINDINGS: Post surgical changes of total right hip arthroplasty new from prior. Expected soft tissue emphysema and overlying skin balbir. No periprosthetic fracture. No malalignment. Lucency along the superior a cetabulum may relate to degenerative related cystic change/geode. The remainder of the bony pelvis is intact. Left hip joint intact and without significant degenerative change. IMPRESSION: Expected postsurgical appearance status post total right hip arthroplasty. Electronically signed by: Salinas Rodriguez M.D. 08/06/2019 10:56 AM
[2019-08-06] MEDS: SODIUM CHLORIDE 0.9% 1000ML 1,000 ML IV SCH ×2 (11:50→21:46)
[2019-08-06] MEDS ORDERED: bisacodyL 10 MG SUPP PR PRN (11:53)
[2019-08-06] MEDS ORDERED: ALUMINUM/MAGNESIUM SUSP 30 ML UDC PO PRN (11:53)
[2019-08-06] MEDS ORDERED: HYDROmorphone INJ 0.5 MG/0.5 ML SYR IV PRN (11:53)
[2019-08-06] MEDS ORDERED: predniSONE 10 MG TABLET PO PRN (11:53)
[2019-08-06] MEDS ORDERED: METOCLOPRAMIDE HCL INJ 5 MG/ML 2 ML VIAL IV PRN (11:53)
[2019-08-06] MEDS ORDERED: MAGNESIUM HYDROXIDE SUSP 30 ML UDC PO PRN (11:53)
[2019-08-06] MEDS ORDERED: TRAMADOL HCL 50 MG TABLET PO PRN (11:53)
[2019-08-06] MEDS ORDERED: DOXYCYCLINE HYCLATE 100 MG CAP PO PRN (11:53)
--- NOTE | 2019-08-06 12:01 | Operative Report ---
DATE OF OPERATION: 08/06/2019 SURGEON: Rigoberto Kan MD EMBLEM DRAWER IN: EMERSON Zamorano PREOPERATIVE DIAGNOSIS: Right hip degenerative joint disease. POSTOPERATIVE DIAGNOSIS: Right hip degenerative joint disease. PROCEDURE PERFORMED: Right uncemented ceramic on highly cross-linked polyethylene total hip arthroplasty. COMPLICATIONS: None. ESTIMATED BLOOD LOSS: 200 mL. FLUID REPLACEMENT: 800 mL crystalloid fluid replacement. ANESTHESIA: Spinal. DRAINS: None. SPECIMENS: Right femoral head sent for pathology. OPERATIVE INDICATIONS: The patient is a 73-year-old fairly healthy and independent elderly female who has had a several-year history of increasing right hip pain and discomfort that has gotten significantly worse over the past year. She has been through extensive conservative treatment which has failed. She is having difficulty living by herself anymore due to the hip pain and limitations. X-rays show advanced right hip DJD. She elected to proceed with surgical treatment. OPERATIVE FINDINGS: Operative findings revealed advanced right hip DJD. She had extensive grade 4 [id number]-krab disease of the femoral head and acetabulum with eburnation of the femoral head. OPERATIVE IMPLANTS: Operative implants consisted of: 1. A Biomet G7 size 48 mm acetabular shell. 2. A 6.5 cancellous acetabular screws, one at 35 mm length and one at 25 mm length. 3. An apex hole eliminator. 4. A highly cross-linked polyethylene liner with a 48 mm outer diameter and 32 mm inner diameter. 5. DePuy Corail size 9 KLA femoral stem with a short neck. 6. A +1/32 mm ceramic articular ball. OPERATIVE PROCEDURE: The patient was taken to the operating room, identified and placed on the operating table in supine position. All contact areas were appropriately padded. IV antibiotics were provided by anesthesia team. A spinal anesthetic had been implemented in the holding area. Zambrano catheter was placed in sterile fashion. The patient was then placed in the left lateral decubitus position. An axillary roll was placed. Stlberg hip positioner was used for positioning. Right hip and leg were then prepped and draped in usual sterile fashion. A posterolateral approach to the right hip was then performed through a curvilinear incision centered over the greater trochanter. Sharp dissection was carried through subcutaneous tissue down to the level of the IT band and gluteal fascia. The IT band and gluteal fascia was incised longitudinally in line with the skin incision. The underlying greater trochanteric bursa was excised. The piriformis and external rotators were tagged and taken off the posterior aspect of the hip joint capsule. Great care was taken throughout the procedure to protect the sciatic nerve at all times. Posterior capsulotomy was then performed leaving a large flap for later repair. Hip was internally rotated and dislocated. A femoral neck osteotomy cut was then made with the final cut about 5 mm above the lesser trochanter. I tried to cut this as low as possible and this is about as low as I could get without skiving the trochanter excessively. The femoral head was removed and sent for pathology. The femur was retracted anteriorly. Attention was then drawn to the acetabulum. The acetabulum labrum was excised. The pulvinar fat was excised. Sequential reaming of the acetabulum was then performed beginning with a size 43 and progressing up to 47. A 48 mm Biomet G7 acetabular shell was then placed in about 40 degrees of lateral opening and 20 degrees of anteversion. It was fixed with two 6.5 cancellous acetabular screws. A trial liner was placed. Some anterior and anterior inferior osteophytes were removed. Attention was then drawn toward the femur. The proximal femur was entered with a cookie cutter followed by canal finder. I broached beginning with size 8 and then progressing to a 9. I got pretty good fit with the 9 and there was not much cancellous bone left and I was afraid that any further broaching would risk fracture. We had good fit. The calcar reamer was used to smoothen off the calcar. I then trialed the hip. With the +1 articular ball and a standard KLA stem, the hip was stable, but just too tight in extension. Therefore, we used a short neck. This created more appropriate soft tissue tension. It was still a bit tight anteriorly. Leg lengths appeared equal. Hip was fully stable in full extension and external rotation and flexion to 90 degrees, internal rotation to over [address] I elected to place these implants. All trial implants were removed. An apex hole eliminator was placed. Highly cross-linked polyethylene liner was placed. A DePuy Corail size 9 KLA short neck femoral neck stem was then impacted in position. A +1/32 mm ceramic articular ball was placed. The hip was located and once again found to be stable. Attention was then drawn toward closing. The wound was irrigated with copious amounts of pulsatile lavage solution. I did inject locally with about 40 mL of 0.5% Marcaine with epinephrine. The posterior capsule and external rotators were then repaired through drill holes in the posterior trochanter with #2 Ti-Cron suture. The IT band and gluteal fascia were then closed with #1 PDS suture in running fashion. Subcutaneous tissues were then closed with 2 layers with the deep layer with #1 Vicryl suture and subcutaneous tissue with 2-0 Dexon suture in a buried interrupted fashion. Skin was closed with skin balbir. Leg was then cleaned, dried and a sterile dressing of Xeroform, 4 x 4, sterile ABD pad, and foam tape was applied. The patient was then transferred to the recovery room in stable condition. The patient tolerated the procedure well with no complications. All needle and sponge counts were correct at the end of the operation. I attest to the content of the Intraoperative Record and any orders documented therein. Any exception s are noted below.
--- NOTE | 2019-08-06 13:11 | Consultation ---
Date of Consultation August 06, 2019 Assessment & Plan (1) S/P total hip arthroplasty: Post op day# 0 S/P Right total hip arthroplasty by Dr Kan EBL#200ml -pain management per ortho -wound management per ortho -PT/OT as appropriate -DVT prophylaxis per ortho - SCDs -incentive spirometry -monitor H&H for acute blood loss anemia; pre-op Hgb: 13.4 (2) COPD (chronic obstructive pulmonary disease): (3) Asthma: Post op pt breathing at baseline. 98% on 2L via NC -Continue Breo, Spiriva, Singulair, Duoneb QID -Duoneb prn SOB/wheezing (4) Nocturnal hypoxemia: (5) Sleep apnea: On 2L NC HS -Continue oxygen HS and when sleeping DVT Prophylaxis -SCDs Disposition per primary service Follows with Dr Melody Johnson for routine care Pt was seen and care coordinated with Dr Luther. See addendum Pt will be followed by Dr Mitchell starting 08/07/19 Thank you for this consultation. We will follow the patient with you during their hospital stay. You can reach a member of the [facility] Hospitalist Team 24/04 via pager @ [phone]. Supervising Physician Co-Signing Physician Notes I, Dr. Jose Luis Luther, have seen and examined the patient with physician research lab assistant and agree with the assessment and plan in regards to recommendations to orthopedic service in this hospitalist medicine consult and would like to comment that This is a 73 year old female with Pre-Op Diagnosis of RIGHT HIP DEGENERATIVE JOINT DISEASE and is s/p Right Total Hip Arthroplasty by today on 08/06/19 Patient has history of Chronic obstructive pulmonary disease and uses 2 liters/minute for Nocturnal hypoxemia and Seep apnea On Physical exam General: no acute distress, patient was seen napping and on nasal cannula oxygen Lungs: clear to auscultation bilaterally Heart: regular rate Abdomen: soft, nontender, positive bowel sounds Extremities: right thigh with dressing, patient able to wiggle toes of bilateral lower extremities agree with continuing patient's monitoring inpatient, will expect patient to work with PT/OT by tomorrow, continue current pain management, continue current management of supplemental oxygen. patient does not has asthma exacerbation at this time, trend CBC after the surgery My colleague Dr. Mitchell will be following the patient starting on 08/07/19 as hospitalist medicine health and safety consultant History of Present Illness Reason for Consultation: Post op medical management Attending Physician: Rigoberto Kan MD History of Present Illness Pt is 73 y/o F with PMH COPD, asthma, nocturnal hypoxemia on 2L NC HS, AMY seen in consultation for post op medical management s/p R Total hip arthroplasty today by Dr Kan. Post op pt reports some nausea. Bilateral legs still with numbness. Denies any current pain. Feels breathing at baseline. Denies any SOB at rest. Denies CP. Had BM this morning prior to procedure. Denies fever/chills, diaphoresis, vomiting, diarrhea, BLACKMAN, dizziness, neck pain, palpitations, cough, sore throat, choking, abdominal pain, extremity edema, rashes, urinary symptoms. Had normal dobutamine stress test in 06/2019. Allergies Allergy/AdvReac Type Severity Reaction Status Date / Time naproxen Allergy Intermediate generalized Verified 08/06/19 06:48 rash NSAIDS (Non-Steroidal AdvReac Unknown unknown Verified 08/06/19 06:48 Anti-Inflamma reaction (? per MD order) Home Medications Home Medications Medication Instructions Recorded Confirmed Type ascorbic acid (vitamin C) [Vitamin 250 mg PO QAM 07/04/19 08/06/19 History C] aspirin [Aspirin Low Dose] 81 mg PO 2XWK 07/04/19 08/06/19 History calcium carbonate-vitamin D3 1 cap PO QAM 07/04/19 08/06/19 History [Calcium 600 + D(3)] celecoxib [Celebrex] 100 mg PO QAM 07/04/19 08/06/19 History cyanocobalamin (vitamin B-12) 100 mcg PO QAM 07/04/19 08/06/19 History [Vitamin B-12] doxycycline hyclate 100 mg PO BID PRN 07/04/19 08/06/19 History fluticasone propionate 2 spray INTRANASAL QAM 07/04/19 08/06/19 History ipratropium-albuterol 3 ml INHALATION QID 07/04/19 08/06/19 History montelukast 10 mg PO PM 07/04/19 08/06/19 History prednisone 10 mg PO DAILY PRN 07/04/19 08/06/19 History tiotropium bromide 1 cap INHALATION QAM 07/04/19 08/06/19 History vit A,C and K-urwngt-fbjnuijb 1 tab PO QAM 07/04/19 08/06/19 History [Ocuvite with Lutein] fluticasone furoate-vilanterol 1 inh INHALATION DAILY 08/06/19 08/06/19 History [Breo Ellipta] Patient History Medical History Nocturnal hypoxemia (Chronic) Chronic obstructive pulmonary disease (Chronic) 2L HS/PRN daytime (daytime O2 rare/monthly) Asthma (Chronic) Sleep apnea (Chronic) "mild"- 2LHS Osteoarthritis (Chronic) Surgical History History of tonsillectomy (Chronic) Hx of hernia repair (Chronic) inguinal Family History Daughter Family hx of colon cancer Father FHx: lung cancer Sister HX: breast cancer Mother Family hx-leukemia Social History Preferred Language: Polish Communication Ability: Effective Beliefs That Will Affect Care: None Current Living Situation: Alone Feels Safe at Home: Yes Safety Concerns: Feels Safe At This Time Smoking Status: Former smoker Do You Dip or Chew Tobacco: No ; Smoking End Date: Quit 11/2014; hx 1/2 ppd x 50 years ; Second Hand Exposure: No ; Hx Alcohol Use: No Hx Substance Use: No Review of Systems Review of Systems: All systems reviewed & are unremarkable except as noted in HPI & below Physical Exam Physical Exam: General: no acute distress, moderately developed moderately nourished, chronic ill appearing female Head: normocephalic, atraumatic Eyes: PERRL, EOM's intact, conjunctiva non-injected, anicteric ENT: normal inspection external ears, nose, mucous membranes moist Neck: supple, trachea midline Lungs: On 2L O2 via NC with pulse ox: 98%, diminished breath sounds throughout CV: RRR, no murmur, no pretibial edema Abd: normal BS, soft, non-tender Ext: no cyanosis, no calf tenderness; surgical dressing to right hip intact Neuro: A&O x 3, no focal deficits noted, normal affect Skin: warm, dry Results & Data Vital Signs (Past 12 Hours) Vital Signs Temp Pulse Pulse Pulse Resp BP BP 08/06/19 12:43 92 H 18 159/66 H 08/06/19 12:10 36.4 C L 74 15 123/64 08/06/19 11:50 36.4 C L 78 16 131/63 08/06/19 11:24 36.3 C L 08/06/19 11:15 73 14 144/52 H 08/06/19 11:00 36.4 C L 67 16 126/52 L 08/06/19 10:50 68 16 121/50 L 08/06/19 10:40 70 12 123/50 L 08/06/19 10:33 36.2 C L 69 21 114/47 L 08/06/19 06:53 36.5 C 76 18 157/66 H Pulse Ox 08/06/19 12:43 93 08/06/19 12:10 99 08/06/19 11:50 98 08/06/19 11:24 08/06/19 11:15 99 08/06/19 11:00 99 08/06/19 10:50 99 08/06/19 10:40 99 08/06/19 10:33 98 08/06/19 06:53 95
[2019-08-06] MEDS: ACETAMINOPHEN 500 MG TAB PO SCH ×2 (14:10→21:41)
[2019-08-06] MEDS: KETOROLAC TROMETHAMINE 15 MG/ML VIAL IV SCH ×2 (14:10→20:40)
[2019-08-06] MEDS: ALBUT/IPRATROP 3MG/0.5MG NEB 3 ML VIAL INH SCH ×2 (15:10→19:31)
--- NOTE | 2019-08-06 15:35 | Progress Note ---
DATE: 08/06/2019 SUBJECTIVE: A 73-year-old white female postop from a right hip replacement. She is doing well. Not having any pain yet. No chest pain or shortness of breath. Not feeling dizzy or lightheaded. OBJECTIVE: VITAL SIGNS: Temperature 36.4. Vital signs stable. O2 sats 97% on 2 liters. GENERAL: Shows a pleasant elderly female. She is sitting up in bed and talking to her collections attorney. She looks comfortable. She has got some nasal oxygen in place. LUNGS: Clear to auscultation. HEART: Has regular rate and rhythm. ABDOMEN: Soft, nontender, nondistended. EXTREMITIES: Grossly neurovascularly intact except as follows: Examination of the right leg reveals the leg to be well aligned. Leg lengths are equal. Hip is located. Dressing is clean, dry and intact. She can dorsiflex and plantarflex her foot appropriately. She is neurologically intact. X-RAYS: X-rays of the right hip from recovery room reviewed. It shows right uncemented total hip arthroplasty. Components looked to be in good position. No signs of problems. ASSESSMENT: A 73-year-old white female with some underlying oxygen dependent chronic obstructive pulmonary disease postop from right hip replacement, doing well. Pain is controlled. She is neurologically intact. Hip is located. PLAN: 1. DVT prophylaxis including thigh-high TEDs, SCDs, and aspirin twice a day. 2. PT/OT. Weight bear as tolerated. Right total hip protocol. 3. Pain control, doing well with current pain regimen. We are going to try and limit narcotics to avoid confusion issues. 4. IV antibiotics x24 hours. 5. Disposition: She is hoping to be discharged to home. We will see how she does in rehab. She apparently has a lot of family around to help. She will need some home health.
[2019-08-06] MEDS ORDERED: TRANEXAMIC ACID 1,000 MG in 0.9 % SODIUM CHLORIDE 100 ML IV SCH (16:30)
[2019-08-06] MEDS: CEFAZOLIN 1000MG 1,000 MG/7.5 ML SYR IV SCH (17:01)
[2019-08-06] MEDS: FERROUS GLUCONATE 324 MG TAB PO SCH (17:04)
[2019-08-06] MEDS: ASCORBIC ACID 500 MG TAB PO SCH (17:04)
[2019-08-06] MEDS: SENNA 8.6 MG TAB PO SCH (21:41)
[2019-08-06] MEDS: MONTELUKAST SODIUM 10 MG TABLET PO SCH (21:42)
[2019-08-06] MEDS: DOCUSATE SODIUM 100 MG CAP PO SCH (21:42)
[2019-08-06] MEDS: ASPIRIN 81 MG ECTAB PO SCH (21:43)
[2019-08-07] MEDS: CEFAZOLIN 1000MG 1,000 MG/7.5 ML SYR IV SCH (00:57)
[2019-08-07] MEDS: KETOROLAC TROMETHAMINE 15 MG/ML VIAL IV SCH ×4 (01:01→19:23)
[2019-08-07 05:27] LABS: Basophils # (auto) 0.01 K/uL (0-0.2); Basophils % (auto) 0.1 %; Eosinophils # (auto) 0.19 K/uL (0-0.5); Eosinophils % (auto) 2.3 %; Hematocrit (blood only) 35.2 % (37-47); Hemoglobin 11.6 g/dL (12.0-16.0); Immature Granulocytes # (auto) 0.02 K/uL (0.00-0.02); Immature Granulocytes % (auto) 0.2 %; Lymphocytes # (auto) 1.41 K/uL (1.2-3.4); Lymphocytes % (auto) 17.4 %; Mean Corpuscular Hemoglobin 29.6 pg (25-34); Mean Corpuscular Volume 89.8 fL (80-100); Mean Platelet Volume 10.2 fL (7.4-10.4); Monocytes # (auto) 0.97 K/uL (0.11-0.59); Monocytes % (auto) 11.9 %; Neutrophils # (auto) 5.52 K/uL (1.4-6.5); Neutrophils % (auto) 68.1 %; Platelet Count 220 K/uL (130-400); RDW Coefficient of Variation 14.1 % (11.5-14.5); RDW Standard Deviation 46.5 fL (36.4-46.3); Red Blood Count 3.92 M/uL (4.2-5.4); White Blood Count 8.12 K/uL (4.8-10.8)
[2019-08-07 05:57] LABS: BUN Creatinine Ratio 19.5 (10-20); Calcium 7.8 mg/dl (8.5-10.1); Creatinine Clr Calc Pharmacy 64.9 ml/min; Est GFR (African American) 102.2; Est GFR (Non-African American) 88.2; Potassium 3.5 mmol/L (3.5-5.1)
[2019-08-07] MEDS: ACETAMINOPHEN 500 MG TAB PO SCH ×3 (06:16→21:29)
[2019-08-07] MEDS: ALBUT/IPRATROP 3MG/0.5MG NEB 3 ML VIAL INH SCH ×4 (07:16→19:15)
[2019-08-07] MEDS: FLUTICASONE/VILANTEROL INHALER INH SCH (08:00)
[2019-08-07] MEDS: CYANOCOBALAMIN (VITAMIN B-12) 100 MCG TABLET PO SCH (08:00)
[2019-08-07] MEDS: TIOTROPIUM BROMIDE 5 PUFF/90 MCG INH INH SCH (08:00)
[2019-08-07] MEDS: CALCIUM 600MG + VIT D 400 IU TAB PO SCH (08:00)
[2019-08-07] MEDS: ASCORBIC ACID 500 MG TAB PO SCH ×2 (08:01→17:57)
[2019-08-07] MEDS: DOCUSATE SODIUM 100 MG CAP PO SCH ×2 (08:01→19:28)
[2019-08-07] MEDS: FERROUS GLUCONATE 324 MG TAB PO SCH ×2 (08:01→17:57)
[2019-08-07] MEDS: FLUTICASONE PROPIONATE NA SPR 16 GM BTL NAE SCH (08:01)
[2019-08-07] MEDS: CEROVITE ADV FORMULA TAB PO SCH (08:01)
[2019-08-07] MEDS: ASPIRIN 81 MG ECTAB PO SCH ×2 (08:01→21:29)
[2019-08-07] MEDS ORDERED: MULTIVITAMIN TAB PO SCH (09:00)
[2019-08-07] MEDS ORDERED: ASCORBIC ACID 250 MG PO SCH (09:00)
--- NOTE | 2019-08-07 12:39 | Progress Note ---
DATE: 08/07/2019 SUBJECTIVE: A 73-year-old white female postop day #1 from right hip replacement. She is doing quite well. Pain is controlled. She rates her pain at about 2/10. No chest pain or shortness of breath. Not feeling dizzy or lightheaded. OBJECTIVE: VITAL SIGNS: Temperature 36.6. Vital signs stable. GENERAL: Shows a pleasant elderly female. Sitting up in her bedside chair and looks quite comfortable. EXTREMITIES: Examination of the right hip reveals leg lengths to be equal. Dressing is clean, dry and intact. She can dorsiflex and plantarflex her foot appropriately. She is neurologically intact. LABORATORY DATA: Hemoglobin is 11.6. Hematocrit 35.2. Electrolytes are stable. ASSESSMENT: A 73-year-old white female postop day #1 from right hip replacement, doing quite well. Pain is controlled. Hip is located. She is neurologically intact. Pulmonary situation seems to be under control. PLAN: 1. DVT prophylaxis including thigh-high TEDs, SCDs, and aspirin twice a day. 2. PT/OT. Weight bear as tolerated. Right total hip protocol. 3. Pain control, doing well with current pain regimen. We are going to try and limit narcotics to avoid confusion. 4. Disposition: Plan to discharge to home with some home health.
--- NOTE | 2019-08-07 19:20 | Hospitalist Progress Note ---
Date of Service August 07, 2019 Assessment & Plan (1) S/P total hip arthroplasty: Post op day# 1 S/P Right total hip arthroplasty by Dr Kan Continue pain management per ortho Continue PT/OT evaL Incentive spirometry Monitor H/H Fall precaution (2) COPD (chronic obstructive pulmonary disease): (3) Asthma: Continue Breo, Spiriva, Singulair, Duoneb QID Stable (4) Nocturnal hypoxemia: (5) Sleep apnea: Continue oxygen HS and when sleeping DVT Prophylaxis as per ortho Disposition As per Ortho Thank you for this consultation. We will follow the patient with you during their hospital stay. You can reach a member of the [facility] Hospitalist Team 24/04 via pager @ [phone]. Subjective Pt was seen and examined Sitting in chair with no distress Pt said that she feels much better She said that her pain is controlled She said that she has been walking in the hallway Denies any chest pain, palpitation and SOB Physical Exam Physical Exam: General- No acute distress Head- atraumatic Eyes- PERRL, EOMI, ENT- oropharynx clear Neck- supple, no JVD Lungs- clear to auscultation Heart- regular rhythm; no murmur Abdomen- normal bowel sounds, soft, nontender Extremities- no calf tenderness Neuro- alert, oriented x 3; PERRL, EOMI; no facial palsy; no dysarthria Skin- warm & dry Results & Data Vital Signs (Past 12 Hours) Vital Signs Temp Pulse Pulse Resp BP Pulse Ox 08/07/19 16:21 101 H 08/07/19 15:23 36.7 C 136 H 18 146/69 H 92 08/07/19 14:52 103 H 16 93 08/07/19 11:55 36.6 C 88 18 120/62 94 08/07/19 11:10 90 16 94 08/07/19 07:55 36.5 C 84 18 124/58 L 96 08/07/19 07:16 77 16 91
[2019-08-07] MEDS: SENNA 8.6 MG TAB PO SCH (19:28)
[2019-08-07] MEDS: MONTELUKAST SODIUM 10 MG TABLET PO SCH (21:29)
[2019-08-08] MEDS: KETOROLAC TROMETHAMINE 15 MG/ML VIAL IV SCH ×2 (02:47→08:33)
[2019-08-08] MEDS: ACETAMINOPHEN 500 MG TAB PO SCH (06:20)
[2019-08-08] MEDS: ALBUT/IPRATROP 3MG/0.5MG NEB 3 ML VIAL INH SCH ×2 (06:49→11:19)
--- NOTE | 2019-08-08 07:53 | Progress Note ---
DATE: 08/08/2019 SUBJECTIVE: A 73-year-old white female postop day 2 from a right hip replacement. She is doing well. Rates her pain at 3/10. Therapy went well. No chest pain or shortness of breath. She is really anxious to get home. OBJECTIVE: VITAL SIGNS: Temperature 36.8. Vital signs stable. GENERAL: Shows a pleasant elderly female. She is sitting up in her bedside chair, eating breakfast and looks comfortable. EXTREMITIES: Examination of the right hip reveals the dressing to be clean, dry and intact. Thigh is soft and supple. Hip is located. She is neurologically intact. ASSESSMENT: A 73-year-old white female postop day 2 from right hip replacement, doing well. Pain is controlled. Hip is located. She is neurologically intact. PLAN: 1. DVT prophylaxis including thigh-high TEDs, SCDs, and aspirin twice a day. 2. PT/OT. Weight bear as tolerated. Right total hip protocol. 3. Pain control, doing well with current pain regimen. We are going to use Tylenol and avoid narcotics as much as possible. 5. Disposition: Plan to discharge to home with some home health later today.
[2019-08-08] MEDS: FERROUS GLUCONATE 324 MG TAB PO SCH (08:32)
[2019-08-08] MEDS: CALCIUM 600MG + VIT D 400 IU TAB PO SCH (08:32)
[2019-08-08] MEDS: TIOTROPIUM BROMIDE 5 PUFF/90 MCG INH INH SCH (08:32)
[2019-08-08] MEDS: DOCUSATE SODIUM 100 MG CAP PO SCH (08:32)
[2019-08-08] MEDS: FLUTICASONE/VILANTEROL INHALER INH SCH (08:33)
[2019-08-08] MEDS: CYANOCOBALAMIN (VITAMIN B-12) 100 MCG TABLET PO SCH (08:33)
[2019-08-08] MEDS: ASCORBIC ACID 500 MG TAB PO SCH (08:33)
[2019-08-08] MEDS: ASPIRIN 81 MG ECTAB PO SCH (08:33)
[2019-08-08] MEDS: FLUTICASONE PROPIONATE NA SPR 16 GM BTL NAE SCH (08:33)
[2019-08-08] MEDS: CEROVITE ADV FORMULA TAB PO SCH (08:33)
--- NOTE | 2019-08-12 18:33 | Discharge Summary ---
ADMITTING PHYSICIAN AND SURGEON: Dr. Rigoberto Kan. ADMITTING DIAGNOSIS: Right hip degenerative joint disease. SURGERY PERFORMED: Right total hip arthroplasty. SECONDARY DIAGNOSES: Oxygen dependent COPD, arthritis. CONSULTS: Dr. Bridges postoperative medical management. HISTORY AND PHYSICAL EXAMINATION: Well documented in the patient's chart. HOSPITAL COURSE: The patient was admitted on 08/06/2019 underwent total hip arthroplasty, tolerated the procedure well. There were no complications. She was transferred to the PACU postoperatively and later to the orthopedic for further care. She was given Ancef for antibiotic prophylaxis, NGUYEN stockings, SCDs and aspirin for DVT prophylaxis. Hemoglobin, hematocrit and vital signs were monitored during her hospital stay and remained stable. She did not require any blood transfusions. There were no complications. Postop day 2, she was tolerating a regular diet, pain was controlled with oral pain medicine. She was participating in physical therapy. Postop day 2, she was discharged home, set up with home health services. She was given printed discharge instructions including new prescriptions for extra strength Tylenol, aspirin and tramadol. Continue home medicines. Continue physical therapy, weightbearing as tolerated, NGUYEN stockings, total hip precautions. Follow up approximately 2 weeks postop or sooner if there are any problems or concerns.
== END 2019-08-08 11:51 | disposition home health service (06) | DRG 470 ==
LOC: ASU 06:30 → 3E 10:39